=== PATIENT | female | born 1990 | race Caucasian/White ===

== ENCOUNTER 2016-09-25 03:31 | Emergency (ER) | payer OTHER ==
[~2016-09-25] VITALS: Ht 157.5 cm; Wt 92.0 kg
[~2016-09-25 03:31] MED LIST: ENDOCET 5-3251 EACH PO; IBUPROFEN800 MG PO; PRENATAL CAPSU1 EACH PO
[2016-09-25 05:18] LABS: ADD MIUA? YES; BILIRUBIN SMALL; BLOOD NEGATIVE; COLOR DK YELLOW ((YELLOW)); GLUCOSE (STRIP) NEGATIVE; KETONES 15; LEUKOCYTES LARGE; NITRITE NEGATIVE; PROTEIN (STRIP) 30; SPECIFIC GRAVITY 1.028 (1.000-1.030)
[2016-09-25] MEDS ORDERED: DIFLUCAN150 MG PO (05:18)
[2016-09-25] MEDS ORDERED: MEDROL DOSEPAK4 MG PO (05:18)
[2016-09-25] MEDS ORDERED: KEFLEX500 MG PO (05:28)
[2016-09-25 05:32] VITALS: BP 132/80
[2016-09-25 05:45] LABS: BACTERIA 2+; EPITHELIAL CELLS RARE; MUCUS 3+; RED BLOOD CELLS 0-5 /HPF (0-5); UCUL ADDED? YES; WHITE BLOOD CELLS 30-40 /HPF (0-5)
[2016-09-25 05:46] LABS: AMORPHOUS PHOSPHATE CRYSTALS 2+; CASTS NONE SEEN /LPF; CRYSTALS PRESENT
== END 2016-09-25 05:34 | disposition home or self-care (01) ==
LOC: EME 03:31
PROVIDERS: Emergency Medicine
DX: N89.8 Other specified noninflammatory disorders of vagina (principal); L29.9 Pruritus, unspecified
CPT/HCPCS: 81003; 87086; 99281; 99284; J0696; J7512